=== PATIENT | female | born 1995 | race Caucasian/White ===

== ENCOUNTER 2019-12-10 09:30 | Outpatient (CLI) | payer MEDICAID ==
[2019-12-10 10:17] LABS: BASOPHILS 0.1 % (0-2); EOSINOPHILS 0.9 % (0-7); HEMATOCRIT 34.2 % (36.0-48.0); HEMOGLOBIN 11.5 g/dL (12-16); IMMATURE GRANULOCYTES 0.2 % (0-5); LYMPHOCYTES 17.7 % (15-50); MCH 28.3 pg (26.0-34.0); MCHC 33.6 g/dL (31.0-37.0); MEAN PLATELET VOLUME 9.2 fL (7.4-10.4); MONOCYTES 5.5 % (2-11); NEUTROPHILS 75.6 % (40-80); PLATELET COUNT 271 10x3/uL (130-400); RBC 4.07 10x6/uL (4.00-5.40)
[2019-12-10 10:34] LABS: CALC OSMOLALITY 270 mosm/kg (275-300); CALCIUM 7.9 mg/dL (8.5-10.1); CARBON DIOXIDE 21.9 mmol/L (21.0-32.0); CHLORIDE - SERUM 104 mmol/L (98-107); CREATININE - SERUM 0.6 mg/dL (0.6-1.3); GLUCOSE 139 mg/dL (74-106); POTASSIUM - SERUM 3.4 mmol/L (3.5-5.1); SODIUM 135 mmol/L (136-145); UREA NITROGEN 10 mg/dL (7-18); eGFR NON AFRICAN AMERICAN > 90 mL/min (90-120)
[2019-12-10 10:40] LABS: ALBUMIN 2.3 g/dL (3.4-5.0); ALKALINE PHOSPHATASE 86 U/L (30-120); ALT (SGPT) 28 U/L (10-68); BILIRUBIN - INDIRECT 0.09 mg/dL (0.00-1.00); BILIRUBIN - TOTAL 0.13 mg/dL (0.2-1.3); URIC ACID 3.6 mg/dL (2.6-7.2)
[2019-12-10 10:41] LABS: BILIRUBIN - DIRECT 0.04 mg/dL (0.00-0.30)
[2019-12-12 09:57] LABS: PROTEIN - URINE 11.5 mg/dL (0.0-11.9)
== END 2019-12-10 10:55 | disposition home or self-care (01) ==
LOC: D.LDO 09:30
PROVIDERS: ATTEND Obstetrics & Gynecology
DX: O16.9 Unspecified maternal hypertension, unspecified trimester (principal)

== ENCOUNTER 2019-12-17 11:08 | Outpatient (CLI) | payer MEDICAID | END 2019-12-17 12:40 | disposition home or self-care (01) | LOC: D.LDO 11:08 | PROVIDERS: ATTEND Obstetrics & Gynecology | DX: O16.9 Unspecified maternal hypertension, unspecified trimester (principal) ==

== ENCOUNTER 2019-12-24 14:06 | Outpatient (CLI) | payer MEDICAID | END 2019-12-24 15:46 | disposition home or self-care (01) | LOC: D.LDO 14:06 | PROVIDERS: ATTEND Obstetrics & Gynecology | DX: O16.9 Unspecified maternal hypertension, unspecified trimester (principal) ==

== ENCOUNTER 2019-12-28 14:44 | Outpatient (CLI) | payer MEDICAID | END 2019-12-28 14:50 | disposition home or self-care (01) | LOC: D.LDO 14:44 | PROVIDERS: ATTEND Obstetrics & Gynecology | DX: O16.9 Unspecified maternal hypertension, unspecified trimester (principal) ==